=== PATIENT | female | born 1990 | race Two or more races ===

== ENCOUNTER 2024-04-02 13:16 | Emergency (ER) | payer OTHER ==
--- NOTE | 2024-04-02 16:33 | ED Physician Documentation ---
History of Present Illness - Stated complaint Stated Complaint: FEVER, CHILLS - Chief complaint Chief Complaint: Wound - Additonal information Additional information: 34-year-old female with history of hypertension presents emergency department for an inflamed vaginal mass. Patient says that she has a history of getting lumps in her groin/vaginal region and usually takes a warm bath and can get the symptoms to subside on their own but couple days ago she started to notice a vaginal mass that has slowly gotten larger in size and today started experiencing fevers and chills body aches. She does endorse as well as a slightly dry mouth with a sore throat. No nausea or vomiting her fever at home has been around 100.8 Fahrenheit and has been taking Tylenol ibuprofen [id number]. PD PAST MEDICAL HISTORY - Past Medical History Past Medical History: Yes Cardiovascular: Hypertension - Past Surgical History Past Surgical History: Yes - Present Medications Home Medications: Ambulatory Orders Medication Instructions Recorded Confirmed Amox/Clav 875/125 [Augmentin] 1 each PO Q12H #20 tablet 04/02/24 Lisinopril [Zestril] 20 mg PO DAILY PM 04/02/24 04/02/24 Metoprolol Succinate [Toprol Xl] 50 mg PO DAILY PM 04/02/24 04/02/24 - Allergies Allergies/Adverse Reactions: Allergies Allergy/AdvReac Type Severity Reaction Status Date / Time No Known Drug Allergies Allergy Verified 04/02/24 13:25 - Social History Does the pt smoke?: No Smoking Status: Never smoker Does the pt drink ETOH?: No Does the pt have substance abuse?: No - Immunizations Immunizations are current?: Yes - POLST Patient has POLST: No PD ED PE NORMAL - Vitals Vital signs reviewed: Yes - General General: Alert and oriented X 3, No acute distress, Well developed/nourished - Abdomen Abdomen: Normal bowel sounds, Soft, Non tender, Non distended, No organomegaly - Derm Derm: Normal color, Warm and dry, No rash PD ED PE EXPANDED - Female Female : [employer] present (Rakan Costa MD), Other (large bartholin cyst to right internal vaginal wall) Results - Vitals Vitals: Oxygen O2 Source Room air - Labs Labs: Laboratory Tests 04/02/24 04/02/24 04/02/24 15:33 16:42 16:42 WBC 18.6 H RBC 4.49 Hgb 14.3 Hct 41.6 MCV 92.7 MCH 31.8 H MCHC 34.4 RDW 12.9 Plt Count 287 MPV 9.9 Neut # (Auto) 15.9 H Lymph # (Auto) 1.7 [place] # (Auto) 0.8 Eos # (Auto) 0.0 Baso # (Auto) 0.1 Absolute Nucleated RBC 0.00 Nucleated RBC % 0.0 Sodium 135 Potassium 3.8 Chloride 102 Carbon Dioxide 26 Anion Gap 7.0 BUN 11 Creatinine 0.6 Estimated GFR (MDRD) 113 Glucose 97 Calcium 10.0 Magnesium 1.9 Total Bilirubin 0.8 AST 21 ALT 20 Alkaline Phosphatase 57 Total Protein 8.2 Albumin 4.7 Globulin 3.5 Albumin/Globulin Ratio 1.3 Lipase 22 Urine Color YELLOW Urine Clarity CLEAR Urine pH 7.5 Ur Specific [place] 1.010 Urine Protein NEGATIVE Urine Glucose (UA) NEGATIVE Urine Ketones NEGATIVE Urine Occult Blood MODERATE H Urine Nitrite NEGATIVE Urine Bilirubin NEGATIVE Urine Urobilinogen 0.2 (NORMAL) Ur Leukocyte Esterase NEGATIVE Urine RBC 6-10 H Urine WBC 0-3 Ur Squamous Epith Cells FEW Squamous Urine Bacteria Rare Ur Microscopic Review INDICATED Urine Culture Comments NOT INDICATED Nasal Adenovirus (PCR) Nasal B. parapertussis DNA (PCR) Nasal Coronavir 229E PCR Nasal Coronavir HKU1 PCR Nasal Coronavir NL63 PCR Nasal Coronavir OC43 PCR Nasal Enterovir/Rhinovir PCR Nasal Influenza B PCR Nasal Influenza A PCR Nasal Parainfluen 1 PCR Nasal Parainfluen 2 PCR Nasal Parainfluen 3 PCR Nasal Parainfluen 4 PCR Nasal RSV (PCR) Nasal B.pertussis DNA PCR Nasal C.pneumoniae (PCR) Rajendra Human Metapneumo PCR Nasal M.pneumoniae (PCR) Nasal SARS-CoV-2 (PCR) 04/02/24 16:55 WBC RBC Hgb Hct MCV MCH MCHC RDW Plt Count MPV Neut # (Auto) Lymph # (Auto) [place] # (Auto) Eos # (Auto) Baso # (Auto) Absolute Nucleated RBC Nucleated RBC % Sodium Potassium Chloride Carbon Dioxide Anion Gap BUN Creatinine Estimated GFR (MDRD) Glucose Calcium Magnesium Total Bilirubin AST ALT Alkaline Phosphatase Total Protein Albumin Globulin Albumin/Globulin Ratio Lipase Urine Color Urine Clarity Urine pH Ur Specific [place] Urine Protein Urine Glucose (UA) Urine Ketones Urine Occult Blood Urine Nitrite Urine Bilirubin Urine Urobilinogen Ur Leukocyte Esterase Urine RBC Urine WBC Ur Squamous Epith Cells Urine Bacteria Ur Microscopic Review Urine Culture Comments Nasal Adenovirus (PCR) NOT DETECTED Nasal B. parapertussis DNA (PCR) NOT DETECTED Nasal Coronavir 229E PCR NOT DETECTED Nasal Coronavir HKU1 PCR NOT DETECTED Nasal Coronavir NL63 PCR NOT DETECTED Nasal Coronavir OC43 PCR NOT DETECTED Nasal Enterovir/Rhinovir PCR NOT DETECTED Nasal Influenza B PCR NOT DETECTED Nasal Influenza A PCR NOT DETECTED Nasal Parainfluen 1 PCR NOT DETECTED Nasal Parainfluen 2 PCR NOT DETECTED Nasal Parainfluen 3 PCR NOT DETECTED Nasal Parainfluen 4 PCR NOT DETECTED Nasal RSV (PCR) NOT DETECTED Nasal B.pertussis DNA PCR NOT DETECTED Nasal C.pneumoniae (PCR) NOT DETECTED [place] Human Metapneumo PCR NOT DETECTED Nasal M.pneumoniae (PCR) NOT DETECTED Nasal SARS-CoV-2 (PCR) NOT DETECTED Procedures - Abscess I&D (location) bartholin abscess Preparation: Lidocaine 2% Incision: Incised with scalpel, Purulent drainage, Loculations broken Other: Pt tolerated well, Antibiotic prescribed, Other (Delacruz catheter sutured i nto right vaginal wall) PD Medical Decision Making - ED course ED course: 34-year-old female presents emergency department for right vaginal inflammation and swelling. Ultrasound confirmed that it was a very large Bartholin cyst that appears to be abscess. Dr. Costa was able to do incision and drainage on the patient's right vaginal wall with large amount of purulent drainage and loculated the breast on cyst and placed a Word catheter. Patient was started on Augmentin here in the emergency department this prescription sent to preferred pharmacy she is told to follow-up with women's health to have the Word catheter removed in 6 weeks. Patient was given return precautions all questions answered safe for discharge. Departure - Departure Disposition: 01 Home, Self Care Clinical Impression: Bartholin's gland abscess Condition: Good Instructions: ED Bartholins Cyst IandD Follow-[facility]: [facility] [Provider Group] - Within 1 week Prescriptions: Amox/Clav 875/125 [Augmentin] 1 each PO Q12H #20 tablet Comments: Sent your prescription electronically to [facility] in [place]. You should follow-up with our women's clinic for reevaluation in about a week with expectation they will follow along and also take the Word catheter out at an appropriate time which is usually 6 weeks. You should start to feel much better between the draining of the abscess and the antibiotics. Return for new or worsening symptoms. As far as wound care, you can just shower as per usual, be mandy with wiping around the vaginal area and will probably need to wear a thick pad to collect any persistent pus or drainage until it stops draining. Forms: PCP List Discharge Date/Time: 04/02/24 20:05
[2024-04-02 16:50] LABS: BASOPHILS # (AUTO) 0.1 10^3/uL (0.0-0.1); BASOPHILS % (AUTO) 0.3 %; EOSINOPHILS % (AUTO) 0.1 %; HCT - HEMATOCRIT 41.6 % (37.0-47.0); HGB - HEMOGLOBIN 14.3 g/dL (12.0-16.0); LYMPHOCYTES # (AUTO) 1.7 10^3/uL (1.5-3.5); LYMPHOCYTES % (AUTO) 9.3 %; MEAN CORPUSCULAR HEMOGLOBIN 31.8 pg (27.0-31.0); MEAN CORPUSCULAR HGB CONC 34.4 g/dL (32.0-36.0); MEAN CORPUSCULAR VOLUME 92.7 fL (81.0-99.0); MEAN PLATELET VOLUME 9.9 fL (7.9-10.8); MONOCYTES # (AUTO) 0.8 10^3/uL (0.0-1.0); MONOCYTES % (AUTO) 4.4 %; NEUTROPHILS # (AUTO) 15.9 10^3/uL (1.5-6.6); NEUTROPHILS % (AUTO) 85.5 %; PLT - PLATELET COUNT 287 10^3/uL (130-450); RED BLOOD COUNT 4.49 10^6/uL (4.20-5.40); RED CELL DISTRIBUTION WIDTH 12.9 % (12.0-15.0); WHITE BLOOD COUNT 18.6 x10^3/uL (4.8-10.8)
[2024-04-02 16:55] LABS: BILIRUBIN,URINE NEGATIVE (NEGATIVE); GLUCOSE, URINE (UA) NEGATIVE (NEGATIVE); KETONES,URINE (UA) NEGATIVE (NEGATIVE); LEUKOCYTE ESTERASE, URINE NEGATIVE (NEGATIVE); NITRITE,URINE NEGATIVE (NEGATIVE); OCCULT BLOOD,URINE MODERATE (NEGATIVE); PH,URINE 7.5 PH (5.0-7.5); PROTEIN,URINE NEGATIVE (NEGATIVE); UROBILINOGEN,URINE 0.2 (NORMAL) E.U./dL (NORMAL)
[2024-04-02 16:56] LABS: CLARITY,URINE CLEAR (CLEAR)
[2024-04-02 17:04] LABS: ALBUMIN 4.7 g/dL (3.2-5.5); ALBUMIN/GLOBULIN RATIO 1.3 (1.0-2.2); BILIRUBIN,TOTAL 0.8 mg/dL (0.2-1.0); CREATININE 0.6 mg/dL (0.6-1.3); MAGNESIUM 1.9 mg/dL (1.7-2.3); POTASSIUM 3.8 mmol/L (3.5-4.5); TOTAL PROTEIN 8.2 g/dL (6.4-8.9)
[2024-04-02 17:05] LABS: WBC,URINE 0-3 /HPF (0-5)
[2024-04-02 17:06] LABS: BACTERIA,URINE Rare /HPF (None Seen); SQUAMOUS EPITHELIAL CELL,UR FEW Squamous (<= Few)
[2024-04-02 17:58] LABS: B. PARAPERTUSSIS- RESP PCR PAN NOT DETECTED; B. PERTUSSIS- RESP PCR PANEL NOT DETECTED; C. PNEUMONIAE- RESP PCR PANEL NOT DETECTED; CORONAVIRUS 229E-RESP PCR NOT DETECTED; CORONAVIRUS HKU1-RESP PCR NOT DETECTED; CORONAVIRUS NL63-RESP PCR NOT DETECTED; CORONAVIRUS OC43-RESP PCR NOT DETECTED; HUMAN METAPNEUMOVIRUS NOT DETECTED; INFLUENZA A- RESP PCR PANEL NOT DETECTED; INFLUENZA B - RESP PCR PANEL NOT DETECTED; M. PNEUMONIAE- RESP PCR PANEL NOT DETECTED; PARAINFLUENZA VIRUS 1 NOT DETECTED; PARAINFLUENZA VIRUS 2 NOT DETECTED; PARAINFLUENZA VIRUS 3 NOT DETECTED; PARAINFLUENZA VIRUS 4 NOT DETECTED; RHINOVIRUS/ENTEROVIRUS NOT DETECTED; RSV- RESP PCR PANEL NOT DETECTED; SARS-CoV-2 -RESP PCR PANEL NOT DETECTED
[2024-04-02 19:24] VITALS: BP 137/85; O2SAT 99
--- NOTE | 2024-04-02 19:26 | Ultrasound Report ---
PROCEDURE: Pelvic Limited INDICATIONS: right internal vaginal mass TECHNIQUE: Real-time transabdominal scanning was performed of the pelvic organs, with image documentation. COMPARISON: None. Findings and impression: Slightly to the right of the introitus, there is a complex cystic lesion measuring 3.7 x 3.4 cm. Ther e is peripheral vascularity and internal debris. Sterility is indeterminate on imaging. If further imaging is desired, consider MRI to further delineate anatomic relationships. Differential includes Bartholin gland cyst. Following treatment, consider surveillance imaging to ensure there is no underlying solid component. Reviewed by: Jero Viramontes MD on 04/02/2024 7:24 PM PDT Approved by: Jero Viramontes MD on 04/02/2024 7:24 PM PDT Station ID: [id number]
[2024-04-02] MEDS: AMOX/CLAV 875 MG/125 MG TABLET PO STA (20:04)
== END 2024-04-02 20:05 | disposition home or self-care (01) ==
LOC: ED 13:16
DX: N75.1 Abscess of Bartholin's gland (principal); I10 Essential (primary) hypertension
CPT/HCPCS: 36415; 56420; 76857; 80053; 81001; 83690; 83735; 85025; 87633; 99283; 99284; A9270; 81003; 87086